=== PATIENT | female | born 1970 | race Asian ===

== ENCOUNTER 2016-12-10 09:37 | Outpatient (CLI) | payer OTHER | END 2016-12-10 19:02 | disposition home or self-care (01) | LOC: MAMMO 09:37 | DX: Z12.31 Encounter for screening mammogram for malignant neoplasm of breast (principal) | CPT/HCPCS: G0202-TC ==

== ENCOUNTER 2018-12-11 11:02 | Emergency (ER) | payer OTHER ==
[~2018-12-11] VITALS: Ht 172.7 cm; Wt 87.5 kg
[2018-12-11 12:20] VITALS: BP 154/95; TEMP 98
== END 2018-12-11 12:22 | disposition home or self-care (01) ==
LOC: ED 11:02
DX: S16.1XXA Strain of muscle, fascia and tendon at neck level, initial encounter (principal); W19.XXXA Unspecified fall, initial encounter
CPT/HCPCS: 99283

== ENCOUNTER 2018-12-23 09:38 | Outpatient (CLI) | payer OTHER | END 2018-12-23 23:03 | disposition home or self-care (01) | LOC: MAMMO 09:38 | DX: Z12.31 Encounter for screening mammogram for malignant neoplasm of breast (principal) ==

== ENCOUNTER 2019-09-13 03:52 | Emergency (ER) | payer OTHER ==
[~2019-09-13] VITALS: Ht 172.7 cm; Wt 103.0 kg
[2019-09-13 04:39] VITALS: BP 128/78; TEMP 98.4
== END 2019-09-13 04:39 | disposition home or self-care (01) ==
LOC: ED 03:52
DX: G43.909 Migraine, unspecified, not intractable, without status migrainosus (principal)
CPT/HCPCS: 96372; 99283; J1885

== ENCOUNTER 2020-08-06 16:34 | Outpatient (CLI) | payer OTHER | END 2020-08-06 23:18 | disposition home or self-care (01) | LOC: RAD 16:34 | PROVIDERS: ATTEND Surgery | DX: M25.561 Pain in right knee (principal) ==

== ENCOUNTER 2020-10-05 15:51 | Outpatient (CLI) | payer OTHER | END 2020-10-05 21:51 | disposition home or self-care (01) | LOC: MAMMO 15:51 | PROVIDERS: ATTEND Registered Nurse | DX: Z12.31 Encounter for screening mammogram for malignant neoplasm of breast (principal) ==

== ENCOUNTER 2021-01-02 20:25 | Emergency (ER) | payer OTHER ==
[~2021-01-02] VITALS: Ht 172.7 cm; Wt 111.1 kg
[2021-01-02 20:30] VITALS: BP 192/90; TEMP 99.1
== END 2021-01-02 21:30 | disposition home or self-care (01) ==
LOC: ED 20:25
DX: G43.909 Migraine, unspecified, not intractable, without status migrainosus (principal); B96.81 Helicobacter pylori [H. pylori] as the cause of diseases classified elsewhere
CPT/HCPCS: 96372; 99283; J1885

== ENCOUNTER 2021-01-28 15:24 | Outpatient (CLI) | payer OTHER | END 2021-01-28 22:04 | disposition home or self-care (01) | LOC: US 15:24 | PROVIDERS: ATTEND Internal Medicine Gastroenterology | DX: R10.31 Right lower quadrant pain (principal) ==

== ENCOUNTER 2021-02-05 07:51 | Outpatient (CLI) | payer OTHER | END 2021-02-05 19:27 | disposition home or self-care (01) | LOC: CT 07:51 | PROVIDERS: ATTEND Internal Medicine Gastroenterology | DX: R10.31 Right lower quadrant pain (principal) | CPT/HCPCS: 36415; 82565; 84520; Q9963 ==

== ENCOUNTER 2021-04-27 16:07 | Emergency (ER) | payer OTHER ==
[~2021-04-27] VITALS: Ht 172.7 cm; Wt 111.1 kg
[2021-04-27 19:30] VITALS: BP 180/88; TEMP 98.2
== END 2021-04-27 19:30 | disposition home or self-care (01) ==
LOC: ED 16:07
PROC: 2W3RX1Z Immobilization of Left Lower Leg using Splint (ICD-10-PCS; principal; 2021-04-27)
DX: S82.65XA Nondisplaced fracture of lateral malleolus of left fibula, initial encounter for closed fracture (principal); S92.135A Nondisplaced fracture of posterior process of left talus, initial encounter for closed fracture; W18.39XA Other fall on same level, initial encounter; Y92.513 Shop (commercial) as the place of occurrence of the external cause
CPT/HCPCS: 96372; 99283; J1885; J2175; J2405

== ENCOUNTER 2021-05-13 13:57 | Outpatient (CLI) | payer OTHER | END 2021-05-13 19:22 | disposition home or self-care (01) | LOC: RAD 13:57 | PROVIDERS: ATTEND Physician Assistant | DX: M25.572 Pain in left ankle and joints of left foot (principal) ==

== ENCOUNTER 2021-06-10 13:45 | Outpatient (CLI) | payer OTHER | END 2021-06-10 18:55 | disposition home or self-care (01) | LOC: RAD 13:45 | PROVIDERS: ATTEND Physician Assistant | DX: M25.572 Pain in left ankle and joints of left foot (principal) ==

== ENCOUNTER 2021-07-04 11:55 | Emergency (ER) | payer OTHER ==
[~2021-07-04] VITALS: Ht 172.7 cm; Wt 113.4 kg
[2021-07-04 14:46] LABS: PLATELET COUNT 297 K/uL (152-353)
[2021-07-04 14:56] LABS: POTASSIUM 3.7 mmol/L (3.6-5.2)
[2021-07-04 17:08] VITALS: BP 148/77; TEMP 99
== END 2021-07-04 17:08 | disposition home or self-care (01) ==
LOC: ED 11:55
PROVIDERS: Emergency Medicine
DX: A09 Infectious gastroenteritis and colitis, unspecified (principal)
CPT/HCPCS: 80053; 81000; 83690; 84484; 85027; 96360; 96375; 99284; J2270; J2405

== ENCOUNTER 2021-09-24 11:38 | Emergency (ER) | payer BC ==
[~2021-09-24] VITALS: Ht 172.7 cm; Wt 113.4 kg
[2021-09-24 11:47] VITALS: BP 162/96; TEMP 97.2
[2021-09-24 12:17] LABS: PLATELET COUNT 290 K/uL (152-353)
[2021-09-24 12:29] LABS: POTASSIUM 4.3 mmol/L (3.6-5.2)
[2021-09-24 12:38] LABS: PARTIAL THROMBOPLASTIN TIME 21.8 SECONDS (24.5-33.6)
== END 2021-09-24 13:32 | disposition home or self-care (01) ==
LOC: ED 11:38
PROVIDERS: Emergency Medicine
DX: R07.89 Other chest pain (principal)
CPT/HCPCS: 80053; 83880; 84484; 85027; 85379; 85610; 85730; 93005; 96374; 96375; 99284; J1885; J2405

== ENCOUNTER 2021-11-26 08:40 | Outpatient (CLI) | payer BC ==
[~2021-11-26] VITALS: Ht 33 cm; Wt 63.5 kg
== END 2021-11-26 19:10 | disposition home or self-care (01) ==
LOC: NM 08:40
PROVIDERS: ATTEND Specialist
DX: R07.9 Chest pain, unspecified (principal)
CPT/HCPCS: A9500; J2785

== ENCOUNTER 2021-12-11 13:55 | Outpatient (CLI) | payer BC ==
[2021-12-11 14:22] LABS: POTASSIUM 4.6 mmol/L (3.6-5.2)
[2021-12-11 14:34] LABS: PLATELET COUNT 270 K/uL (152-353)
== END 2021-12-11 19:04 | disposition home or self-care (01) ==
LOC: LABW 13:55
PROVIDERS: ATTEND Specialist
DX: R94.39 Abnormal result of other cardiovascular function study (principal); R07.9 Chest pain, unspecified
CPT/HCPCS: 36415; 80048; 85027

== ENCOUNTER 2021-12-13 07:38 | Outpatient (CLI) | payer BC | END 2021-12-13 19:58 | disposition home or self-care (01) | LOC: LABW 07:38 | PROVIDERS: ATTEND Nurse Practitioner | DX: D72.829 Elevated white blood cell count, unspecified (principal) | CPT/HCPCS: 81002 ==

== ENCOUNTER 2021-12-23 15:42 | Emergency (ER) | payer BC ==
[~2021-12-23] VITALS: Ht 172.7 cm; Wt 114.3 kg
[2021-12-23 15:45] VITALS: TEMP 99.2
[2021-12-23 16:56] LABS: PLATELET COUNT 278 K/uL (152-353)
[2021-12-23 17:01] LABS: POTASSIUM 3.5 mmol/L (3.6-5.2)
[2021-12-23 17:43] VITALS: BP 154/85
== END 2021-12-23 18:06 | disposition home or self-care (01) ==
LOC: ED 15:42
PROVIDERS: Emergency Medicine Emergency Medical Services
DX: R07.89 Other chest pain (principal); Z98.890 Other specified postprocedural states
CPT/HCPCS: 36415; 80053; 84484; 85027; 85379; 85610; 93005; 96360; 99284

== ENCOUNTER 2022-03-06 09:32 | Outpatient (CLI) | payer BC | END 2022-03-06 19:23 | disposition home or self-care (01) | LOC: MAMMO 09:32 → RAD 09:32 → MAMMO 19:23 | PROVIDERS: ATTEND Physician Assistant | DX: Z12.31 Encounter for screening mammogram for malignant neoplasm of breast (principal); M25.572 Pain in left ankle and joints of left foot ==

== ENCOUNTER 2022-04-23 22:15 | Emergency (ER) | payer BC ==
[~2022-04-23] VITALS: Ht 172.7 cm; Wt 114.3 kg
[2022-04-23 23:14] LABS: PLATELET COUNT 253 K/uL (152-353)
[2022-04-23 23:17] LABS: POTASSIUM 3.5 mmol/L (3.6-5.2)
[2022-04-24 01:26] VITALS: BP 146/96; TEMP 98.9
== END 2022-04-24 01:26 | disposition home or self-care (01) ==
LOC: ED 22:15
PROVIDERS: Emergency Medicine Emergency Medical Services
DX: R00.2 Palpitations (principal); T50.995A Adverse effect of other drugs, medicaments and biological substances, initial encounter; E83.42 Hypomagnesemia; X58.XXXA Exposure to other specified factors, initial encounter; Y92.89 Other specified places as the place of occurrence of the external cause
CPT/HCPCS: 36415; 80053; 81002; 83735; 84443; 84484; 85027; 85610; 93005; 96360; 96365; 99284

== ENCOUNTER 2022-05-08 15:05 | Outpatient (CLI) | payer BC | END 2022-05-08 19:06 | disposition home or self-care (01) | LOC: LABW 15:05 | PROVIDERS: ATTEND Physician Assistant | DX: R07.89 Other chest pain (principal); R06.02 Shortness of breath ==

== ENCOUNTER 2022-08-05 10:14 | Outpatient (CLI) | payer BC | END 2022-08-05 18:57 | disposition home or self-care (01) | LOC: RAD 10:14 | PROVIDERS: ATTEND Nurse Practitioner | DX: M79.661 Pain in right lower leg (principal); M79.671 Pain in right foot ==

== ENCOUNTER 2023-01-14 23:53 | Emergency (ER) | payer BC ==
[~2023-01-14] VITALS: Ht 172.7 cm; Wt 108.9 kg
[2023-01-15 00:48] LABS: POTASSIUM 3.6 mmol/L (3.6-5.2)
[2023-01-15 01:06] LABS: PARTIAL THROMBOPLASTIN TIME 27.7 SECONDS (23.9-36.7)
[2023-01-15 01:08] LABS: PLATELET COUNT 308 K/uL (152-353)
[2023-01-15 02:50] VITALS: BP 110/57; TEMP 98.6
== END 2023-01-15 02:50 | disposition home or self-care (01) ==
LOC: ED 23:53
PROVIDERS: Family Medicine
DX: R07.89 Other chest pain (principal)
CPT/HCPCS: 80053; 84484; 85027; 85610; 85730; 93005; 96374; 96375; 99284; J2270; J2405

== ENCOUNTER 2023-01-18 12:04 | Emergency (ER) | payer BC ==
[~2023-01-18] VITALS: Ht 172.7 cm; Wt 108.9 kg
[2023-01-18 12:22] VITALS: TEMP 97.2
[2023-01-18 13:52] LABS: PLATELET COUNT 327 K/uL (152-353)
[2023-01-18 14:01] LABS: POTASSIUM 3.1 mmol/L (3.6-5.2)
[2023-01-18 15:24] VITALS: BP 145/86
== END 2023-01-18 15:24 | disposition home or self-care (01) ==
LOC: ED 12:04
PROVIDERS: Family Medicine
DX: L50.9 Urticaria, unspecified (principal); J30.2 Other seasonal allergic rhinitis; E87.6 Hypokalemia
CPT/HCPCS: 36415; 80053; 81002; 85027; 86140; 96372; 99283; J2930